=== PATIENT | male | born 1960 | race Caucasian/White ===

== ENCOUNTER 2017-10-08 09:25 | Emergency (ER) | payer BC ==
[2017-10-08 09:37] VITALS: BP 145/84; PULSE 86; TEMP 98; BMI 25.9
[2017-10-08] MEDS ORDERED: predniSONE 20 MG TABLET (UD) ONE (10:10)
[2017-10-08] MEDS ORDERED: KETOROLAC TROMETHAMINE 60 MG/2 ML VIAL ONE (10:10)
[2017-10-08] MEDS ORDERED: predniSONE 20 MG TABLET (UD) PO ONE (10:15)
[2017-10-08] MEDS ORDERED: KETOROLAC TROMETHAMINE 60 MG/2 ML VIAL IM ONE (10:15)
--- NOTE | 2017-10-08 10:21 | PDOC ---
History of Present Illness - General Chief Complaint: Sore Throat Stated Complaint: NECK PROBLEM, SORE THROAT Time Seen by Provider: 10/08/17 10:15 History Source: Patient Exam Limitations: No Limitations - History of Present Illness Initial Comments: 10/08/17 10:16 Patient here with complaints of 4 days of severe neck spasm. States onset was last week, tried using cyclobenzaprine with minimal resolved. States is extending with now wraparound headache pain and shoulder pain. Ear or throat pain, no known injury Timing/Duration: unsure Severity: mild, moderate Past History - Travel Traveled outside of the country in the last 30 days: No Close contact w/someone who was outside of country & ill: No - Past Medical History Allergies/Adverse Reactions: Allergies Allergy/AdvReac Type Severity Reaction Status Date / Time No Known Allergies Allergy Verified 10/08/17 09:33 Home Medications: Ambulatory Orders Methocarbamol [Robaxin -] 1,500 mg PO Q8H PRN #20 tablet 10/08/17 Prednisone [Deltasone -] 20 mg PO UTDICT #8 tablet 10/08/17 Cardiac Disorders: No (mitral valve problems.) COPD: No HTN: Yes Psychiatric Problems: Yes (anxiety.) Thyroid Disease: No - Suicide/Smoking/Psychosocial Hx Smoking History: Current every day smoker Number of Cigarettes Smoked Daily: 30 Information on smoking cessation initiated: No Hx Alcohol Use: No Drug/Substance Use Hx: No Substance Use Type: None Review of Systems - Review of Systems Able to Perform ROS?: Yes Is the patient limited Iranian proficient: Yes Constitutional: Yes: Symptoms Reported, See HPI, Malaise. No: Chills, Loss of Appetite HEENTM: No: Symptoms Reported Respiratory: No: Symptoms reported Cardiac (ROS): No: Symptoms Reported ABD/GI: No: Symptoms Reported Musculoskeletal: Yes: Symptoms Reported, Joint Pain, Joint Swelling, Muscle Pain , Neck Pain, Joint Stiffness Neurological: Yes: Symptoms reported, See HPI, Headache, Weakness. No: Paresthesia All Other Systems: Reviewed and Negative *Physical Exam - Vital Signs Last Vital Signs Temp Pulse Resp BP Pulse Ox 98.0 F 86 18 145/84 100 10/08/17 09:34 10/08/17 09:34 10/08/17 09:34 10/08/17 09:34 10/08/17 09:34 - Physical Exam General Appearance: Yes: Nourished, Appropriately Dressed, Apparent Distress, Moderate Distress HEENT: positive: [place], Normal ENT Inspection, Normal Voice, TMs Normal, Pharynx Normal Neck: positive: Tender. negative: Supple (somewhat limited range of motion secondary to severe spasm on the left side of neck paravertebral musculature. Reproduce tenderness with pressure-point at occiput that reproduces scalp pain and headache. Also reproduces upper trapezius muscle pain and radiating pain to left shoulder and arm with pressure-point. Spasm is palpable to sternocleidomastoid muscles worse on the left than the right. No bone tenderness , crepitus or step-offs.), Lymphadenopathy (R), Lymphadenopathy (L) Respiratory/Chest: positive: Lungs Clear Cardiovascular: positive: Regular Rhythm Musculoskeletal: positive: Normal Inspection, Decreased Range of Motion, Muscle Spasm Extremity: positive: Normal Capillary Refill, Normal Inspection, Normal Range of Motion. negative: Tender Integumentary: positive: Normal Color, Dry, Warm, Pale Neurologic: positive: motion picture photographer II-XII NML intact, Fully Oriented, Alert, Normal Mood/ Affect, Normal Response, Motor Strength / Medical Decision Making - Medical Decision Making 10/08/17 10:53 Cervical muscle strain, worse on the left than the right. We will treat with NSAIDs, prednisone short course, and change antispasmodic to Robaxin as patient did not receive relief with cyclobenzaprine *DC/Admit/Observation/Transfer Diagnosis at time of Disposition: Cervical myofascial strain Qualifiers: Encounter type: initial encounter Qualified Code(s): S16.1XXA - Strain of muscle, fascia and tendon at neck level, initial encounter - Discharge Dispostion Disposition: HOME Condition at time of disposition: Stable Admit: No - Prescriptions Prescriptions: Methocarbamol [Robaxin -] 1,500 mg PO Q8H PRN #20 tablet PRN Reason: Muscle Spasms Prednisone [Deltasone -] 20 mg PO UTDICT #8 tablet - Referrals Referrals: STAFF,NOT ON [Primary Care Provider] - Renato Clark MD [Staff Physician] - - Patient Instructions Printed Discharge Instructions: DI for Cervical Muscle Strain Additional Instructions: Rest, no heavy lifting or exercise until pain is resolved Hot soaks to neck and low back as often as possible/hot showers or Jacuzzis No massage or therapy until spasm is gone Continue Aleve 2 tablets every 8 hours for the next 3 days then as needed for pain and swelling Robaxin 1500 mg every 8 hours as needed for spasm Prednisone 40 mg for the next 4 days If not significant improvement within 24 hours with medication and rest regime, followup with private physician for change in medications and /or therapy. - Post Discharge Activity Forms/Work/School Notes: Back to Work
== END 2017-10-08 11:09 | disposition home or self-care (01) ==
LOC: JERFT 09:25 → EDSEX 09:25 → JERFT 11:09
PROC: 3E0233Z Introduction of Anti-inflammatory into Muscle, Percutaneous Approach (ICD-10-PCS; principal; 2017-10-08)
DX: S16.1XXA Strain of muscle, fascia and tendon at neck level, initial encounter (principal); I10 Essential (primary) hypertension; F42.9 Obsessive-compulsive disorder, unspecified; F17.210 Nicotine dependence, cigarettes, uncomplicated; X58.XXXA Exposure to other specified factors, initial encounter; Y93.89 Activity, other specified; Y92.89 Other specified places as the place of occurrence of the external cause; Y99.8 Other external cause status
CPT/HCPCS: 99281-25

== ENCOUNTER 2022-06-26 11:04 | Emergency (ER) | payer BC ==
[2022-06-26 11:33] VITALS: BP 170/88; PULSE 56; RESP 18; TEMP 98.1; BMI 23.7
[2022-06-26] MEDS ORDERED: SODIUM CHLORIDE 1,000 ML IV STA (12:12)
[2022-06-26 12:34] LABS: BASO % 1.2 % (0-2.0); EOS % 0.9 % (0-4.5); HEMATOCRIT 42.6 % (35.4-49); HEMOGLOBIN 14.6 GM/dL (11.7-16.9); LYMPH % 29.7 % (8-40); MCH 29.9 pg (25.7-33.7); MCHC 34.3 g/dl (32.0-35.9); MEAN PLT VOLUME 7.8 fl (7.5-11.1); MONO % 12.5 % (3.8-10.2); NEUT % 55.7 % (42.8-82.8); PLATELET COUNT 231 10^3/uL (134-434); RBC 4.89 M/mm3 (4.00-5.60); RDW 13.6 % (11.9-15.9); URINE APPEARANCE CLEAR; URINE BILIRUBIN NEGATIVE (NEGATIVE); URINE COLOR YELLOW; URINE GLUCOSE (UA) NEGATIVE (NEGATIVE); URINE KETONE NEGATIVE (NEGATIVE); URINE LEUK ESTERASE NEGATIVE (NEGATIVE); URINE NITRITE NEGATIVE (NEGATIVE); URINE PROTEIN NEGATIVE (NEGATIVE); URINE UROBILINOGEN 0.2 mg/dL (0.2-1.0); WHITE BLOOD COUNT 5.2 K/mm3 (4.0-10.0)
[2022-06-26 12:39] LABS: INR 1.1 (0.83-1.09); PROTHROMBIN TIME (PATIENT) 12.7 SEC (9.7-13.0)
[2022-06-26 12:42] LABS: ACTIVATED PTT 36.5 SECONDS (25.2-36.5)
[2022-06-26 12:54] LABS: CALCIUM 9.1 mg/dL (8.5-10.1)
[2022-06-26 12:55] LABS: ALBUMIN 4.1 g/dl (3.4-5.0); BLOOD UREA NITROGEN 16.8 mg/dL (7-18)
[2022-06-26 12:58] LABS: CREATININE 0.8 mg/dL (0.55-1.3)
[2022-06-26 12:59] LABS: TOT PROT 7.8 g/dl (6.4-8.2)
[2022-06-26 13:00] LABS: BILIRUBIN,TOTAL 1.3 mg/dL (0.2-1)
[2022-06-26] MEDS ORDERED: traMADol HCL 50 MG TABLET PO ONE (16:06)
[2022-06-26] MEDS ORDERED: traMADol HCL 50 MG TABLET ONE (16:08)
[2022-06-26 16:36] LABS: BASO % 1.3 % (0-2.0); EOS % 0.8 % (0-4.5); HEMATOCRIT 43.1 % (35.4-49); HEMOGLOBIN 14.6 GM/dL (11.7-16.9); LYMPH % 36.3 % (8-40); MCH 29.6 pg (25.7-33.7); MCHC 33.9 g/dl (32.0-35.9); MEAN CELL VOLUME 87.3 fl (80-96); MONO % 10.9 % (3.8-10.2); NEUT % 50.7 % (42.8-82.8); PLATELET COUNT 234 10^3/uL (134-434); RBC 4.94 M/mm3 (4.00-5.60); RDW 13.6 % (11.9-15.9); WHITE BLOOD COUNT 6.3 K/mm3 (4.0-10.0)
== END 2022-06-26 16:53 | disposition home or self-care (01) ==
LOC: JER 11:04 → JERFT 11:04
PROC: 3E0337Z Introduction of Electrolytic and Water Balance Substance into Peripheral Vein, Percutaneous Approach (ICD-10-PCS; principal; 2022-06-26)
DX: K57.31 Diverticulosis of large intestine without perforation or abscess with bleeding (principal); M17.9 Osteoarthritis of knee, unspecified; H00.012 Hordeolum externum right lower eyelid
CPT/HCPCS: 36415; 74177-TC; 80053; 81003; 82272; 83690; 85025; 85610; 85730; 86850; 86900; 86901; 87086; 93005; 93010; 99284-25; Q9967